=== PATIENT | female | born 1975 | race Caucasian/White ===

== ENCOUNTER 2021-11-12 21:44 | Emergency (ER) | payer SELFPAY ==
[2021-11-12 22:08] VITALS: BP 167/98; PULSE 75; RESP 20; TEMP 36.7; O2SAT 98; BMI 38.0
--- NOTE | 2021-11-12 22:28 | CTR_ITS ---
PROCEDURE INFORMATION: Exam: CT Abdomen And Pelvis With Contrast Exam date and time: 11/12/2021 11:04 PM Age: 46 years old Clinical indication: Nausea; Abdominal pain; Localized; Other: Bilat flank; Prior surgery; Surgery type: Gb. Csection. ; Patient HX: C/O bilateral flank pain with radiation to anterior abdomen. History of kidney stones. ; Additional info: Abd pain TECHNIQUE: Imaging protocol: Computed tomography of the abdomen and pelvis with contrast. Radiation optimization: All CT scans at this facility use at least one of these dose optimization techniques: automated exposure control; mA and/or kV adjustment per patient size (includes targeted exams where dose is matched to clinical indication); or iterative reconstruction. Contrast material: OMNI 350; Contrast volume: 95 ml; Contrast route: INTRAVENOUS (IV); COMPARISON: No relevant prior studies available. RADIATION DOSE METRICS: Total DLP (mGy-cm): 3314.1 FINDINGS: Lungs: Serpiginous branching structure in the posterior left lower lobe, most likely a chronically obstructed and dilated bronchus. Liver: Focal fatty infiltration in the left liver lobe. Otherwise unremarkable. Gallbladder and bile ducts: Cholecystectomy. Mild dilatation of the intrahepatic bile ducts with normal extrahepatic bile ducts. This most likely represents chronic reservoir effect. Pancreas: Normal. No ductal dilation. Spleen: Normal. No splenomegaly. Adrenal glands: Normal. No mass. Kidneys and ureters: Two adjacent 2-3 mm calculi in the terminal right ureter with mild-moderate right hydronephrosis. 1 mm right renal calculus. 1 mm calculus in the terminal left ureter with mild left hydronephrosis. Bilateral perinephric stranding. Stomach and bowel: Unremarkable. No obstruction. No mucosal thickening. Appendix: The appendix is visualized and is normal. Intraperitoneal space: Unremarkable. No free air. No significant fluid collection. Arteries: Arterial calcifications. No aneurysm. Lymph nodes: Unremarkable. No enlarged lymph nodes. Urinary bladder: Unremarkable as visualized. Reproductive: Unremarkable as visualized. Bones/joints: Unremarkable. No acute fracture. Soft tissues: Unremarkable. CT/CT abdomen pelvis w con* 12090 IMPRESSION: 1. 2 adjacent obstructing 2-3 mm calculi in the terminal right ureter with mild-moderate hydronephrosis. 2. 1 mm obstructing calculus in the terminal left ureter with mild hydronephrosis. 3. 1 mm right renal calculus.
--- NOTE | 2021-11-12 22:29 | W.ED.ABDPA2 ---
HPI - Abdominal Pain General: Chief Complaint: Abdominal Pain Stated Complaint: ABD PAINS Time Seen by Provider: 11/12/21 22:10 Source: patient Mode of arrival: ambulatory Limitations: no limitations History of Present Illness: 46-year-old female who states the last 2 days she been having bilateral flank pain with abdominal pains. States that also having vomiting with this. She has had kidney infections in the past states this feels somewhat similar but is having more belly pain than typical. She denies history of kidney stones she denies any worsening improving factors states her pain is currently an 8 out of 10 denies any fevers or chest pain. Associated Symptoms: Reports nausea and vomiting; Denies chills and fever(s) Review of Systems Const: Denies: fever(s), chills, body aches or change in appetite Eyes: Denies: blurry vision or eye discomfort ENMT: Denies: throat pain or dental pain Card: Denies: chest pain Resp: Denies: dyspnea GI: Reports: abdominal pain, nausea and vomiting : Reports: flank pain Musc: Denies: neck pain or back pain Skin/Breast: Denies: rash Neuro: Denies: headache(s) Psych: Denies: depression Xander/Lymph: Denies: easy bruising All/Imm: Denies: urticaria PFSH ED PFSH: Medical History (Updated 11/13/21 @ 00:30 by Donna Lui MD) No pertinent past medical history Social History (Updated 11/12/21 @ 22:32 by Donna Lui MD) Substance/Drug Use: never Physical Exam Const: COMMON NORMALS: no acute distress, patient oriented x3 and healthy appearing HENMT: COMMON NORMALS: normocephalic and atraumatic HEAD & SCALP: normocephalic and atraumatic Eye: COMMON NORMALS: Equal, round and reactive pupils present and EOMs intact bilaterally PUPIL: Yes Equal, round and reactive pupils present Neck/C-Spine: COMMON NORMALS: full ROM and supple Chest: COMMONS NORMALS: normal inspection of the chest and normal palpation of entire chest wall Resp: COMMON NORMALS: normal respiratory effort, No retractions, No use of accessory muscles and clear to auscultation bilaterally AUSCULTATION: clear to auscultation bilaterally Cardio: COMMON NORMALS: regular rate, regular rhythm and No murmurs present (Cardio) RATE: regular rate RHYTHM: regular rhythm GI: COMMON NORMALS: Normal to inspection, nondistended, normoactive bowel sounds present, Soft to palpation and no masses PALPATION: Yes Soft to palpation OTHER: diffuse mild tenderness Back/Pelvis: OTHER: bilateral cva tenderness Extremity: COMMON NORMALS: normal to inspection and full ROM Neuro: COMMON NORMALS: patient oriented x3, moves all extremities and no focal motor deficits Psych: COMMON NORMALS: mental status grossly normal, Normal thought process present and cooperative THOUGHT PROCESS: Normal thought process present Skin: COMMON NORMALS: no rashes or lesions noted and no wounds GENERAL SKIN EXAM: no rashes or lesions noted Course Vital Signs: Vital signs: Vital Signs Temperature 98.0 F 11/12/21 22:08 Pulse Rate 74 11/12/21 22:47 Respiratory Rate 18 11/12/21 22:47 Blood Pressure 160/98 11/12/21 22:47 Pulse Oximetry 97 11/12/21 22:47 MDM - Abdominal Pain Medical Decision Making Patient presents here with bilateral flank pain she does have bilateral distal kidney stones both are small she should be able to pass she does not have a urinary tract infection her pain is much improved here we will prescribe her with pain meds nausea medicine get her follow-up with urology she is to return if worsening she understands agrees to plan. Lab Data : 11/12/21 22:23 11/12/21 22:23 Labs/Radiology: Radiology Impressions Abdomen/Pelvis CT 11/12/21 22:28 IMPRESSION: 1. 2 adjacent obstructing 2-3 mm calculi in the terminal right ureter with mild-moderate hydronephrosis. 2. 1 mm obstructing calculus in the terminal left ureter with mild hydronephrosis. 3. 1 mm right renal calculus. Laboratory Results WBC 16.2 10^3/uL (4.0-10.0) H 11/12/21 22:23 RBC 4.66 10^6/uL (4.1-5.3) 11/12/21 22:23 Hgb 13.7 g/dL (11.5-15.3) 11/12/21 22:23 Hct 41.4 % (37.0-47.0) 11/12/21 22:23 MCV 88.8 fl (81-99) 11/12/21 22:23 MCH 29.4 pg (28.0-34.0) 11/12/21 22: MCHC 33.1 g/dL (30.0-36.0) 11/12/21: RDW 13.8 % (12.1-15.1) 11/12/21: Plt Count 364 10^3/cmm (130-400) 11/12/21 22: MPV 11.0 fL (7.4-10.4) H 11/12/21 22: Neut % (Auto) 88.1 % 11/12/21 22: Lymph % (Auto) 7.2 % 11/12/21 22: [place] % (Auto) 4.1 % 11/12/21 22: Eos % (Auto) 0.0 % 11/12/21: Baso % (Auto) 0.2 % 11/12/21: Neut # (Auto) 14.28 10^3/uL (1.8-7.7) H 11/12/21 22: Lymph # (Auto) 1.2 10^3/uL (0.8-4.8) 11/12/21 22: [place] # (Auto) 0.7 10^3/uL (0.2-0.9) 11/12/21: Eos # (Auto) 0.0 10^3/uL (0.0-0.8) 11/12/21: Baso # (Auto) 0.0 10^3/uL (0.0-0.1) 11/12/21: Nucleated RBC % (auto) 0 % 11/12/21: Nucleated RBCs # 0.0 /100WBC 11/12/21 22: Sodium 139 mmol/L (136-145) 11/12/21 22: Potassium 4.5 mmol/L (3.5-5.1) 11/12/21 22: Chloride 101 mmol/L (98-107) 11/12/21 22: Carbon Dioxide 20 mmol/L (22-29) L 11/12/21 22: Anion Gap 22.5 (5-19) H 11/12/21 22: BUN 16 mg/dL (6-20) 11/12/21: Creatinine 1.0 mg/dL (0.5-0.9) H 11/12/21: GFR Calculation 59.7 mL/min (90-130) L 11/12/21: Glucose 132 mg/dL (65-115) H 11/12/21 22: Calculated Osmolality 291 mOsm/kg (285-295) 11/12/21 22: Calcium 10.0 mg/dL (8.5-10.5) 11/12/21: Total Bilirubin 0.3 mg/dL (0.15-1.2) 11/12/21: AST 17 U/L (0-32) 11/12/21: ALT 16 U/L (0-33) 11/12/21: Alkaline Phosphatase 68 IU/L (35-105) 11/12/21: Total Protein 7.2 g/dL (6.6-8.7) 11/12/21: Albumin 4.6 g/dL (3.5-5.2) 11/12/21: Globulin 2.6 g/dL (1.3-4.6) 11/12/21: Lipase 17 U/L (13-60) 11/12/21: HCG, Qual Negative (Negative) 11/12/21: Urine Color Colorless (Yellow) 11/13/21 00:02 Urine Appearance Clear (CLEAR) 11/13/21 00:02 Urine pH 6 (5-7) 11/13/21 00:02 Ur Specific [place] 1.010 (1.005-1.030) 11/13/21 00:02 Urine Protein Neg (Negative) 11/13/21 00:02 Urine Glucose (UA) Norm (Normal) 11/13/21 00:02 Urine Ketones 2+ (Negative) H 11/13/21 00:02 Urine Blood 3+ (Negative) H 11/13/21 00:02 Urine Nitrate Negative (Negative) 11/13/21 00:02 Urine Bilirubin Neg (Negative) 11/13/21 00:02 Urine Urobilinogen Norm mg/dL (Negative) 11/13/21 00:02 Ur Leukocyte Esterase Negative (Negative) 11/13/21 00:02 Urine RBC 5-10 /hpf (0-2) H 11/13/21 00:02 Urine WBC 5-10 /hpf (0-5) H 11/13/21 00:02 Ur Squamous Epith Cells 0-4 /hpf (0-5) H 11/13/21 00:02 Amorphous Sediment Not Reportable 11/13/21 00:02 Urine Bacteria Trace /hpf (NONE) 11/13/21 00:02 Urine Mucus Trace /hpf 11/13/21 00:02 Discharge Plan Discharge Patient Disposition: Home Clinical Impression: Bilateral kidney stones Prescriptions: New hydrocodone-acetaminophen 5-325 mg tablet 1 tab PO Q6H PRN (Reason: pain) Qty: 14 0RF ondansetron 4 mg tablet,disintegrating 4 mg PO Q6H PRN (Reason: nausea and vomiting) Qty: 14 0RF Discharge Orders: Discharge ED (Routine); Ordered 11/13/21 Ordered By: Donna Lui Referrals: Wilfrid Soto MD [Physician] - 1-3 days Kingston Shaver MD [Primary Care Provider] - Discharge Diet: Advance as tolerated Discharge Activity: Resume usual activity Patient Instructions: Kidney Stones (ED), Opioid Safety Coding Level of Care Code ED [employer] Dealer for Chg Fwd Exam Comprehensive
[2021-11-12 22:36] LABS: Basophils % 0.2 %; Hematocrit 41.4 % (37.0-47.0); Hemoglobin 13.7 g/dL (11.5-15.3); Lymphocytes # 1.2 10^3/uL (0.8-4.8); Lymphocytes % 7.2 %; Mean Corpuscular HGB Conc 33.1 g/dL (30.0-36.0); Mean Corpuscular Hemoglobin 29.4 pg (28.0-34.0); Mean Corpuscular Volume 88.8 fl (81-99); Monocytes # 0.7 10^3/uL (0.2-0.9); Monocytes % 4.1 %; Neutrophils # 14.28 10^3/uL (1.8-7.7); Neutrophils % 88.1 %; Nucleated Red Blood Cells % 0 %; Platelet Count 364 10^3/cmm (130-400); Red Blood Count 4.66 10^6/uL (4.1-5.3); Red Cell Distribution Width 13.8 % (12.1-15.1); White Blood Count 16.2 10^3/uL (4.0-10.0)
[2021-11-12] MEDS: ondansetron 2 mg/ML SDV 2 mL 4 MG IVP (22:41)
[2021-11-12 22:42] VITALS: RESP 18
[2021-11-12] MEDS: HYDROmorphone 1 mg/mL INJ 1 mL IVP (22:42)
[2021-11-12] MEDS: sodium chloride 0.9% 1,000 ML 999 ML IV (22:45)
[2021-11-12 22:47] VITALS: BP 160/98; PULSE 74; RESP 18; O2SAT 97
[2021-11-12 22:51] LABS: HCG, Serum Qual Negative (Negative)
[2021-11-12 22:56] LABS: Alanine Aminotransferase 16 U/L (0-33); Albumin Level 4.6 g/dL (3.5-5.2); Alkaline Phosphatase 68 IU/L (35-105); Anion Gap 22.5 (5-19); Aspartate Amino Transferase 17 U/L (0-32); Blood Urea Nitrogen 16 mg/dL (6-20); Carbon Dioxide 20 mmol/L (22-29); Chloride 101 mmol/L (98-107); Globulin 2.6 g/dL (1.3-4.6); Glomerular Filtration Rate 59.7 mL/min (90-130); Glucose 132 mg/dL (65-115); Lipase 17 U/L (13-60); Osmolality Calculated 291 mOsm/kg (285-295); Potassium 4.5 mmol/L (3.5-5.1); Sodium 139 mmol/L (136-145); Total Bilirubin 0.3 mg/dL (0.15-1.2); Total Protein 7.2 g/dL (6.6-8.7)
[2021-11-12 22:57] LABS: Creatinine Clr Calc Pharmacy 78.1786
[2021-11-12] MEDS: iohexol 350 mg/mL 100 mL Btl IV (23:03)
[2021-11-13] MEDS: sodium chloride 0.9% 1,000 ML 999 ML IV (00:03)
[2021-11-13 00:22] LABS: Glucose Urine UA Norm (Normal); Protein Urine Neg (Negative); Urine Appearance Clear (CLEAR); Urine Color Colorless (Yellow); pH Urine 6 (5-7)
[2021-11-13 00:23] LABS: Add Urine Culture? No; Add Urine Microscopic? YES; Bacteria Urine TRACE /hpf; Bilirubin Urine Neg (Negative); Blood Urine 3+ (Negative); Ketones Urine 2+ (Negative); Leukocyte Esterase Urine Negative (Negative); Mucus Urine TRACE /hpf; Nitrate Urine Negative (Negative); Squamous Epithelial Cell Urine 0-4 /hpf (0-5); Urobilinogen Urine Norm (Negative)
[2021-11-13] MEDS: HYDROcodone-acetaminophen 7.5-325 mg Tablet 1 TAB PO (00:43)
[2021-11-13] MEDS: metoclopramide 5 mg/mL SDV 2 mL 10 MG IVP (00:44)
[2021-11-13] MEDS: diphenhydrAMINE 50 mg/mL SDV 1mL IVP (00:44)
[2021-11-13 01:15] VITALS: BP 158/84; PULSE 80; RESP 18; O2SAT 98
--- NOTE | 2021-11-13 10:28 | DCPLANNER ---
Addendum entered by Venita Fu 11/17/21 20:11: Patient had a follow up appointment scheduled for 11.17.[address] Soto - appointment was cancelled. Addendum entered by Venita Fu 11/17/21 07:39: Patient has a follow up appointment scheduled for Friday, December 17, 2021 at 2:[address] Soto. Clinic will call patient with appointment information. Original Note: distribution sales manager had message to schedule a follow up appointment for patient with urology. distribution sales manager sent patients information to the front office staff at urology. Patients information will be printed and reviewed. Clinic will call patient with appointment information.
== END 2021-11-13 01:16 | disposition home or self-care (01) ==
PROVIDERS: Nurse Practitioner Family; Emergency Provider Emergency Medicine; PCP Family Medicine
DX: N13.2 Hydronephrosis with renal and ureteral calculous obstruction (principal)
CPT/HCPCS: 74177; 80053; 81001; 83690; 84703; 85025; 96361; 96374; 96375; 99284; J1170; J1200; J2405; J2765; J7030; Q9967